=== PATIENT | female | born 1990 | race Caucasian/White ===

== ENCOUNTER 2018-07-28 05:35 | Inpatient (IN) ==
[2018-07-28] MEDS ORDERED: LACTATED RINGERS 500 ML IV PRN (05:45)
[2018-07-28] MEDS ORDERED: ONDANSETRON 4 MG/2 ML VIAL IV PRN ×2 (05:45→08:39)
[2018-07-28 06:20] LABS: Basophils % 0.5 % (0.0-0.8); Eosinophils # 0.1 10*3/uL (0.0-0.87); Eosinophils % 1.5 % (0.00-10.9); Hematocrit 40.2 VOL% (35.7-47.0); Hemoglobin 13.4 GM/DL (12.0-16.0); Immature Granulocytes % 0.3 %; Immature Granulocytes Absolute 0.02 #; Lymphocytes # 1.8 10*3/uL (1.4-4.0); Lymphocytes % 23.1 % (21.3-54.2); Mean Corpuscular HGB Conc 33.3 GM/DL (32-36); Mean Corpuscular Hemoglobin 28 PG (27-34); Mean Corpuscular Volume 84.6 FL (87-102); Mean Platelet Volume 10.1 FL (9.6-12.0); Monocytes # 0.6 10*3/uL (0.11-0.8); Monocytes % 7.3 % (1.7-12.7); Neutrophils # 5.4 10*3/uL (1.4-7.4); Neutrophils % 67.3 % (38.7-73.9); Platelet Count 240 T/CUMM (130-400); Red Blood Count 4.75 MC/CUMM (3.8-5.5)
[2018-07-28] MEDS ORDERED: CITRIC ACID/SODIUM CITRATE 30 ML UDCUP PO ONE (06:25)
[2018-07-28] MEDS: LACTATED RINGERS 1,000 ML IV SCH ×3 (06:30→18:05)
[2018-07-28] MEDS: FAMOTIDINE 20 MG/2 ML VIAL IV SCH (06:36)
[2018-07-28] MEDS ORDERED: SODIUM CHLORIDE 0.9% 100 ML IV ONE (07:04)
[2018-07-28] MEDS ORDERED: ceFAZolin 3,000 MG in SYRINGE 1 EACH IV ONE (07:30)
[2018-07-28] MEDS ORDERED: OXYTOCIN/LR 20 UNIT/1,000 ML BAG IV ONE ×2 (07:50→08:39)
[2018-07-28] MEDS ORDERED: RHO(D) IMMUNE GLOBULIN 300 MCG SYRINGE IM ONE (08:39)
[2018-07-28] MEDS ORDERED: ACETAMINOPHEN 325 MG TABLET PO PRN (08:39)
[2018-07-28] MEDS ORDERED: fentaNYL 100 MCG/2 ML VIAL ONE (08:47)
[2018-07-28] MEDS ORDERED: MORPHINE 10 MG/10 ML VIAL ONE (08:47)
[2018-07-28] MEDS ORDERED: diphenhydrAMINE 50 MG/1 ML VIAL ONE (08:48)
[2018-07-28] MEDS ORDERED: PHENYLEPHRINE 1 MG/10 ML SYRINGE IV ONE (08:48)
[2018-07-28] MEDS ORDERED: ACETAMINOPHEN 1,000 MG/100 ML VIAL IV ONE (08:48)
[2018-07-28 09:16] LABS: Apearance,Urine CLEAR (Clear); Bacteria,Urine Occasional /HPF (Few); Bilirubin,Urine Negative (Negative); Blood, Urine Negative (Negative); Glucose,Urine (UA) Negative (Negative); Ketones,Urine 5 mg/dL (Negative); Mucus,Urine Occasional /LPF (Occasional); Nitrite,Urine Negative (Negative); Protein,Urine 30 MG/DL; RBC,Urine 2 /HPF (0-4); Squamous Epithelial Cell,Urine Occasional /HPF (0-10); Urine Color Yellow (Yellow); Urine Specific Gravity 1.021 (1.001-1.035); Urine Urobilinogen < 2.0 EU/DL (0.2-1.0); WBC,Urine 1 /HPF (0-6)
[2018-07-28] MEDS: ceFAZolin 1,000 MG in SYRINGE 1 EACH IV SCH ×2 (15:06→23:35)
[2018-07-28] MEDS: MULTIVITAMIN (PRENATAL) TABLET PO SCH (17:29)
[2018-07-28] MEDS: DOCUSATE SODIUM 100 MG CAPSULE PO SCH ×2 (17:29→22:44)
[2018-07-28] MEDS: IBUPROFEN 800 MG TABLET PO PRN (20:49)
[2018-07-28] MEDS: oxyCODONE/ACETAMINOPHEN 5-325 MG TABLET PO PRN (20:50)
[2018-07-29] MEDS: IBUPROFEN 800 MG TABLET PO PRN ×2 (06:13→18:07)
[2018-07-29 07:20] LABS: Basophils % 0.3 % (0.0-0.8); Eosinophils # 0.1 10*3/uL (0.0-0.87); Eosinophils % 1.1 % (0.00-10.9); Hematocrit 36.6 VOL% (35.7-47.0); Hemoglobin 12.3 GM/DL (12.0-16.0); Immature Granulocytes % 0.4 %; Immature Granulocytes Absolute 0.05 #; Lymphocytes # 1.9 10*3/uL (1.4-4.0); Lymphocytes % 15.9 % (21.3-54.2); Mean Corpuscular HGB Conc 33.6 GM/DL (32-36); Mean Corpuscular Hemoglobin 28 PG (27-34); Mean Corpuscular Volume 82.4 FL (87-102); Mean Platelet Volume 10.2 FL (9.6-12.0); Monocytes # 0.7 10*3/uL (0.11-0.8); Monocytes % 6.1 % (1.7-12.7); Neutrophils # 8.9 10*3/uL (1.4-7.4); Neutrophils % 76.2 % (38.7-73.9); Platelet Count 228 T/CUMM (130-400); Red Blood Count 4.44 MC/CUMM (3.8-5.5); Red Cell Distribution Width 13.2 % (9.3-17.3); White Blood Count 11.7 T/CUMM (4-12)
[2018-07-29] MEDS: DOCUSATE SODIUM 100 MG CAPSULE PO SCH ×3 (09:35→22:20)
[2018-07-29] MEDS: SIMETHICONE CHEW 80 MG TABLET PO PRN (09:35)
[2018-07-29] MEDS: MAGNESIUM HYDROXIDE SUSP 30 ML UDCUP PO PRN ×2 (09:35→19:43)
[2018-07-29] MEDS: MULTIVITAMIN (PRENATAL) TABLET PO SCH (09:35)
[2018-07-29] MEDS: oxyCODONE/ACETAMINOPHEN 5-325 MG TABLET PO PRN (12:51)
[2018-07-29] MEDS ORDERED: RHO(D) IMMUNE GLOBULIN 300 MCG SYRINGE IM ONE (18:04)
[2018-07-29] MEDS: LACTATED RINGERS 1,000 ML IV SCH ×5 (19:55→19:58)
[2018-07-29] MEDS: FAMOTIDINE 20 MG/2 ML VIAL IV SCH (19:58)
[2018-07-30] MEDS: IBUPROFEN 800 MG TABLET PO PRN ×2 (01:12→08:51)
[2018-07-30 07:22] VITALS: BP 135/78
[2018-07-30] MEDS: MULTIVITAMIN (PRENATAL) TABLET PO SCH (08:45)
[2018-07-30] MEDS: SIMETHICONE CHEW 80 MG TABLET PO PRN (08:45)
[2018-07-30] MEDS: MAGNESIUM HYDROXIDE SUSP 30 ML UDCUP PO PRN (08:46)
[2018-07-30] MEDS: DOCUSATE SODIUM 100 MG CAPSULE PO SCH (08:47)
== END 2018-07-30 12:05 | disposition home or self-care (01) | DRG 766 ==
LOC: N.LDOUT 05:35 → N.LD 05:36 → N.OB 11:27
PROVIDERS: ADMIT Obstetrics & Gynecology; ATTEND Obstetrics & Gynecology
PROC: LDCSECT (ICD-10-PCS; 2018-07-28 07:30)